=== PATIENT | male | born 1965 | race American Indian/Alaskan Native ===

== ENCOUNTER 2018-09-20 18:34 | Emergency (ER) | payer SELFPAY ==
[2018-09-20] MEDS ORDERED: BOOSTRIX IM ONE (23:17)
[2018-09-20] MEDS ORDERED: XYLOCAINE 2% INFILTRATI STA (23:17)
--- NOTE | 2018-09-20 23:25 | Emergency Department Report ---
ED Lower Extremity HPI - General Chief Complaint: Wound/Laceration Stated Complaint: LFT LEG HOLE/PAIN Time Seen by Provider: 09/20/18 23:17 Source: patient Mode of arrival: Ambulatory Limitations: No Limitations - History of Present Illness MD Complaint: leg injury -: Sudden Injury: Thigh: Right (abrasions to hamstring) Place: home Severity: mild Context: fall (was falling off roof and leg scraped ladder on way down) Treatments Prior to Arrival: bandage - Related Data Previous Rx's Medication Instructions Recorded Last Taken Type Chlorhexidine Gluconate [Hibiclens] 10 ml TP BID #240 liquid 09/20/18 Unknown Rx Mupirocin [Bactroban 2%] 15 applic TP TID #15 gm 09/20/18 Unknown Rx Allergies Allergy/AdvReac Type Severity Reaction Status Date / Time Sulfa (Sulfonamide Allergy Unknown Verified 09/20/18 18:46 Antibiotics) ED Review of Systems ROS: Stated complaint: LFT LEG HOLE/PAIN Other details as noted in HPI Constitutional: denies: chills, fever Eyes: denies: eye pain, eye discharge, vision change ENT: denies: ear pain, throat pain Respiratory: denies: cough, shortness of breath, wheezing Cardiovascular: denies: chest pain, palpitations Endocrine: no symptoms reported Gastrointestinal: denies: abdominal pain, nausea, diarrhea Genitourinary: denies: urgency, dysuria Musculoskeletal: denies: back pain, joint swelling, arthralgia Skin: other. denies: rash, lesions Neurological: denies: headache, weakness, paresthesias Psychiatric: denies: anxiety, depression Hematological/Lymphatic: denies: easy bleeding, easy bruising ED Past Medical Hx - Past Medical History Previous Medical History?: No - Surgical History Past Surgical History?: No - Social History Smoking Status: Current Every Day Smoker Substance Use Type: Alcohol - Medications Home Medications: Home Medications Medication Instructions Recorded Confirmed Last Taken Type Chlorhexidine Gluconate [Hibiclens] 10 ml TP BID #240 liquid 09/20/18 Unknown Rx Mupirocin [Bactroban 2%] 15 applic TP TID #15 gm 09/20/18 Unknown Rx ED Physical Exam - General Limitations: No Limitations General appearance: alert, in no apparent distress - Head Head exam: Present: atraumatic, normocephalic - Eye Eye exam: Present: normal appearance, PERRL, EOMI - ENT ENT exam: Present: mucous membranes moist - Neck Neck exam: Present: normal inspection - Respiratory Respiratory exam: Present: normal lung sounds bilaterally. Absent: respiratory distress - Cardiovascular Cardiovascular Exam: Present: regular rate, normal rhythm. Absent: systolic murmur, diastolic murmur, rubs, gallop - GI/Abdominal GI/Abdominal exam: Present: soft, normal bowel sounds - Rectal Rectal exam: Present: deferred - Extremities Exam Extremities exam: Present: normal inspection, full ROM, normal capillary refill, calf tenderness, other (abrasion to hamstring region wtih 5 cm jagged laceration to lower hamstring region. ) - Back Exam Back exam: Present: normal inspection. Absent: CVA tenderness (R), CVA tenderness (L), muscle spasm - Neurological Exam Neurological exam: Present: alert, oriented X3, CN II-XII intact - Psychiatric Psychiatric exam: Present: normal affect, normal mood - Skin Skin exam: Present: warm, dry, normal color, abrasion. Absent: rash ED Course Vital Signs 09/20/18 18:42 Temperature 98 F Pulse Rate 88 Respiratory 16 Rate Blood Pressure 136/96 O2 Sat by Pulse 100 Oximetry - Laceration /Wound Repair Left Thigh Wound Location: lower extremity Wound's Depth, Shape: irregular, contused tissue Irrigated w/ Saline (ccs): 100 Betadine Prep?: Yes Anesthesia: 1% Lidocaine Wound Debrided: minimal Number of Sutures: 9 (seble) Sterile Dressing Applied?: Yes Critical care attestation.: If time is entered above; I have spent that time in minutes in the direct care of this critically ill patient, excluding procedure time. ED Disposition Clinical Impression: Abrasion, Laceration, Tetanus toxoid inoculation Disposition: - TO HOME OR SELFCARE Is pt being admited?: No Does the pt Need Aspirin: No Condition: Stable Instructions: Diphtheria/Tetanus Vaccine (Injection), Suture Care (ED), Laceration (ED) Additional Instructions: keep wound clean daily as we discussed and f/u with pcp for removal of seble. Prescriptions: Chlorhexidine Gluconate [Hibiclens] 10 ml TP BID #240 liquid Mupirocin [Bactroban 2%] 15 applic TP TID #15 gm Referrals: [facility] [Provider Group] - 7-10 days (evaluation for staple removal in 7-10 days wound recheck in 3 days )
[2018-09-21] MEDS ORDERED: TRIPLE ANTIBIOTIC TP ONE (00:37)
[2018-09-21 01:29] VITALS: BP 132/65
== END 2018-09-21 00:29 | disposition home or self-care (01) ==
LOC: ED 18:34
DX: S71.112A Laceration without foreign body, left thigh, initial encounter (principal); F17.200 Nicotine dependence, unspecified, uncomplicated; Z23 Encounter for immunization; Z88.2 Allergy status to sulfonamides; W17.2XXA Fall into hole, initial encounter; Y93.89 Activity, other specified; Y99.8 Other external cause status; Y92.89 Other specified places as the place of occurrence of the external cause
CPT/HCPCS: 90471; 90715; 99282; A6250